=== PATIENT | female | born 1970 | race Caucasian/White ===

== ENCOUNTER 2017-01-01 21:54 | Inpatient (IN) ==
[2017-01-01] MEDS ORDERED: *HR* HYDROcodone/Acet 5/325 mg TABLET PO ONE (22:12)
[2017-01-01] MEDS ORDERED: *HR* FentaNYL (PF) 100 MCG/2 ML VIAL IVP ONE ×2 (22:18→23:24)
[2017-01-01] MEDS ORDERED: 0.9 % Sodium Chloride 1,000 ML IVC ONE (22:18)
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
[2017-01-02] MEDS ORDERED: *HR* OxyCODONE/APAP 5/325 TABLET PO ONE (00:12)
[2017-01-02] MEDS ORDERED: hydrOXYzine pamoate 25 MG CAPSULE PO ONE (00:26)
[2017-01-02] MEDS ORDERED: Ondansetron 4 MG/2 ML VIAL IVP PRN ×2 (03:32→15:10)
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
[2017-01-02] MEDS: *HR* Morphine 2 MG/ML SYRINGE IVP PRN ×2 (04:06→09:10)
[2017-01-02] MEDS: *HR* Heparin 5,000 UNIT/ML VIAL SQ SCH ×3 (05:36→23:56)
[2017-01-02] MEDS ORDERED: Famotidine 20 MG TABLET PO SCH (07:30)
[2017-01-02] MEDS ORDERED: *HR* OxyCODONE/APAP 5/325 TABLET PO PRN (09:58)
[2017-01-02] MEDS ORDERED: 0.9 % Sodium Chloride 1,000 ML IVC SCH (10:00)
[2017-01-02] MEDS ORDERED: *HR* LORazepam 2 MG/ML VIAL IVP PRN ×2 (10:00→15:10)
[2017-01-02] MEDS ORDERED: *HR* Morphine 2 MG/ML SYRINGE IVP PRN (10:01)
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
[2017-01-02 10:12] LABS: Basophils % 0.3 %; Eosinophils # 0.1 K/mcL (0.0-0.6); Eosinophils % 1.2 %; Hematocrit 36.8 % (35.3-44.9); Immature Granulocytes % 0.4 % (0-4); Lymphocytes # 1.7 K/mcL (0.6-4.6); Lymphocytes % 22.3 %; Mean Corpuscular HGB Conc 33.2 g/dL (31.6-35.5); Mean Corpuscular Hemoglobin 31.7 pg (28.0-33.3); Mean Corpuscular Volume 95.6 fL (83.0-100.0); Monocytes # 0.8 K/mcL (0.0-1.3); Monocytes % 10.4 %; Neutrophils # 4.8 K/mcL (1.6-8.9); Platelet Count 191 K/mcL (140-400); Red Blood Count 3.85 M/mcL (3.82-4.97); Segmented Neutrophils % 65.4 %
[2017-01-02 10:18] LABS: Hemoglobin 12.2 g/dL (11.5-15.4)
[2017-01-02 10:21] LABS: Prothrombin Time 10.3 Seconds (9.4-12.1)
[2017-01-02 10:24] LABS: Activated Partial Thrombo Time 28.2 Seconds (26.0-36.0)
[2017-01-02 10:28] LABS: Alanine Aminotransferase 25 Units/L (0-55); Albumin 3.7 g/dL (3.5-5.0); Albumin/Globulin Ratio 1.1 (1.1-2.2); Alkaline Phosphatase 92 Units/L (38-126); Aspartate Amino Transferase 32 Units/L (5-34); BUN/Creatinine Ratio 8 (6-26); Bilirubin,Total 0.6 mg/dL (0.2-1.2); Blood Urea Nitrogen 6 mg/dL (7-20); Calcium 9.2 mg/dL (8.6-10.8); Carbon Dioxide 21 mEq/L (19-29); Chloride 105 mEq/L (98-109); Globulin 3.3 g/dL (2.4-3.5); Glucose 74 mg/dL (70-99); Osmolality,Calculated 282 (280-300); Potassium 3.9 mEq/L (3.5-4.5); Sodium 138 mEq/L (136-145); eGFR For African Americans > 60 (> 60); eGFR For Non-African Americans > 60 (> 60)
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
--- NOTE | 2017-01-02 12:46 | Anesthesia Evaluation PreOp ---
Date of Encounter: 01/02/17 Time of Encounter: 12:44 - Past History Planned Operation: ORIF left humerus fracture Cardiac History: Denies any Significant Hx Pulmonary History: Denies Any Significant HX SOLVENT MIXER History: Denies Any Significant HX Other Medical History: GERD Anesthesia History: No Prior Anesthetic Complications, Past Anesthesia (C/S, den, wrist surgery) : No Test: Negative Alcohol Use: occasionally Drug use: none Medications and Allergies No Known Home Drugs 01/02/17 [History] 3 Allergy/AdvReac Type Severity Reaction Status Date / Time No Known Allergies Allergy Verified 03/12/16 11:52 - Meds/Allergy Pre-op Review Medications Reviewed: Yes Allergies Reviewed: Yes Beta Blockers on Current Med List: No Anesthesia Results - Labs 01/02/17 10:03 01/02/17 10:03 Anesthesia Exam Selected Entries 01/02/17 07:54 Temperature 99 F Pulse Rate 72 Respiratory Rate 16 Blood Pressure 109/70 O2 Sat by Pulse Oximetry 99 Weight: 68kg NPO (# of Hours): >8 - HEENT Mallampati: II Teeth: Normal Oral Opening: Greater than 3 - SOLVENT MIXER LOC: Oriented SOLVENT MIXER Motor: Normal RUE, Normal LUE, Normal RLE, Normal LLE, Normal Face SOLVENT MIXER Sensory: Normal: RUE, LUE, RLE, LLE, Face - Cardiac Rhythm: Regular Murmur: None - Pulmonary Breath Sounds: bilateral Clear Respiratory Effort: Symmetrical Anesthesia Assess/Plan ASA Score: 2 Modified [place] Scale for Level of Consciousness: Cooperative, oriented, and tranquil Anesthetic Plan: General Monitoring Plan: Standard Monitors Recovery Plan: PACU (Discusssed risks of GA, questions answered and agrees to proceed. Also wants interscalene block)
[2017-01-02] MEDS ORDERED: ROPIVACAINE HCL/PF 0.5% 30 ML VIAL ONE (12:55)
[2017-01-02] MEDS ORDERED: Bupivacaine/EPI 1:200k 0.25%PF 10 ML VIAL INFILT ONE (12:56)
[2017-01-02] MEDS ORDERED: Lidocaine -MPF 2% 5 ML VIAL ONE (12:56)
[2017-01-02] MEDS ORDERED: *HR* Propofol 200 MG/20 ML VIAL IVP ONE (13:16)
[2017-01-02] MEDS ORDERED: *HR* FentaNYL (PF) 100 MCG/2 ML VIAL ONE (13:16)
[2017-01-02] MEDS ORDERED: *HR* Midazolam HCl 2 MG/2 ML VIAL ONE (13:16)
[2017-01-02] MEDS ORDERED: *HR* Promethazine 25 MG/ML VIAL IVP PRN (13:34)
[2017-01-02] MEDS ORDERED: *HR* HYDROmorphone (PF) 1 MG/ML SYRINGE IVP PRN (13:34)
--- NOTE | 2017-01-02 13:40 | Anesthesia Procedures ---
Date of Encounter: 01/02/17 Time of Encounter: 13:04 Procedures: Anesthesia - Nerve Block Procedure Date: 01/02/17 Time: 13:04 Allergies/Adv Reactions: nkda Surgical Procedure: left ORIF humerus Checklist: Correct Patient Identifier, Correct procedure, History checked Correct side: Left Blood Thinner: No Monitor Applied: BP, Pulse Oximetry Supplemental Oxygen via Nasal Cannula (L/min): 2 Sedation: Versed (mg): 2 Sedation: Fentanyl (mcg): 100 Indication: Post Op Analgesia Pre-op Neuro Deficits: No Block Type: Interscalene (15 ml of 0.5% rop), Supraclavicular (15ml 0.5% rop ), Other (scp 4ml, and T2 4ml. mixture of 0.25% bup with 1:200k epi and 2%lido plain, ) Catheter placed: No Sterile Technique: Yes Ultrasound used: Yes Anatomy identified: Yes Visual spread of Local: Yes Neuro Stimulation: No Blood on Needle Aspiration: No Smooth Injection of Local: Yes Pain with Injection of Local: No Prep: Chlorhexadine Needle: 22 x 50 mm Stimuplex Local: Ropivacaine, Other (see above) Volume (cc): 38 Number of Attempts: 1 Complications: None/effective block Vitals: vss though out, block per request of surgeon.
[2017-01-02] MEDS ORDERED: Dexamethasone 4 MG/ML VIAL ONE (13:52)
[2017-01-02] MEDS ORDERED: Ondansetron 4 MG/2 ML VIAL ONE (13:52)
[2017-01-02] MEDS ORDERED: EPHEDrine 50 MG/ML VIAL ONE (13:52)
--- NOTE | 2017-01-02 14:08 | Orthopedic Operative Note ---
Date of procedure: 01/02/17 Pre-op diagnosis: Displaced left proximal humerus fracture Post-op diagnosis: same Procedure: Procedure: Left open reduction internal fixation Humerus proximal humerus Estimated blood loss: 100 cc Hardware: 3 hole Synthes proximal humeral locking plate, 1 3.5 cortical screws , 5 3.5 Locking screws Operative procedure: The patient was brought to the operating room and placed on the operating room table. After general anesthesia was administered the operative arm was prepped and draped in the sterile surgical fashion The patient received IV antibiotics prior to skin incision. A standard extended deltopectoral approach was made to the humerus, the incision is made to the skin and subcutaneous tissue. Hemostasis was obtained with Bovie cautery. Using careful blunt dissection the deltopectoral interval was developed, exposing the fracture site. Using fluoroscopic assistance a Synthes proximal humeral locking plate was approximated to the anterior lateral surface was fixed distally in compression with one 3.5 cortical screw. It was fixed proximally with 3 3.5 locking screws. Fixation was completed with distal fixation with2 3.5 locking screws. Position of the hardware as well as fracture reduction found to be acceptable on fluoroscopic exam evaluation. The wound was irrigated the deltopectoral closed with a running #1 PDS suture case tissues irrigated and closed deep with 0 PDS suture superficially with 0 PDS suture was closed with Dermabond patient was sterile dressing and brace. The patient was extubated, and then transferred to the recovery room in stable condition. Anesthesia: GETA Surgeon: Omar Baez Condition: stable Disposition: PACU
--- NOTE | 2017-01-02 14:48 | Anesthesia Evaluation Post Op ---
Date of Encounter: 01/02/17 Time of Encounter: 14:48 - Vital Signs Vital Signs: Vital Signs/O2 Sat, Most Current Temp Pulse Resp BP Pulse Ox 97.6 F 84 16 96/72 98 01/02/17 14:43 01/02/17 14:43 01/02/17 14:43 01/02/17 14:43 01/02/17 14:43 - Lungs Lungs: Clear Ascult./Percussion - Airway Airway: Non-obstructed - Cardiovascular Regular Rate - Mental Status Mental Status: Alert & Oriented, Answers Appropriately - Pain Pain Scale: 0 Pain Scale used: Numeric (1 - 10) - Nausea Vomiting Nausea Vomiting: Not Present - Hydration Hydration: Ice chips, Has not voided - Discharge PostOp Status: Transfer Patient to floor
[2017-01-02] MEDS ORDERED: Temazepam 15 MG CAPSULE PO PRN (15:10)
[2017-01-02] MEDS ORDERED: Naloxone 0.4 MG/ML INJ IVP PRN (15:10)
[2017-01-02] MEDS ORDERED: MOM Conc 10 ML UD.LIQ PO PRN (15:10)
[2017-01-02] MEDS ORDERED: Sennosides 8.6 MG TABLET PO PRN (15:10)
[2017-01-02] MEDS: 0.9 % Sodium Chloride 1,000 ML IVC SCH ×2 (15:18→23:58)
[2017-01-02] MEDS: Famotidine 20 MG TABLET PO SCH (16:05)
[2017-01-02] MEDS: *HR* OxyCODONE/APAP 5/325 TABLET PO PRN (23:55)
[2017-01-02] MEDS: ceFAZolin 2,000 MG in D5% in Water 100 ML IVPB SCH (23:56)
[2017-01-03] MEDS: *HR* Morphine 2 MG/ML SYRINGE IVP PRN ×2 (01:53→07:58)
[2017-01-03 04:45] LABS: Hematocrit 32.6 % (35.3-44.9); Hemoglobin 10.7 g/dL (11.5-15.4)
[2017-01-03] MEDS: *HR* Heparin 5,000 UNIT/ML VIAL SQ SCH ×3 (06:40→19:25)
[2017-01-03] MEDS: ceFAZolin 2,000 MG in D5% in Water 100 ML IVPB SCH (06:40)
[2017-01-03] MEDS: Famotidine 20 MG TABLET PO SCH ×2 (06:42→16:29)
--- NOTE | 2017-01-03 07:33 | Orthopedics Progress Note ---
Date of Encounter: 01/03/17 Time of Encounter: 07:33 Subjective Interval history: Patient was seen this morning doing well without complaints. Afebrile vital signs stable. Operative extremity: Neurovascularly intact Dressing clean dry and intact Calves nontender Assessment and plan: Continue with postoperative care Hematocrit 32 Objective Vital signs: Vital Signs Temp Pulse Resp BP Pulse Ox 01/03/17 06:48 98.5 F 96 18 123/76 98 01/03/17 04:15 98.7 F 91 16 119/75 97 01/02/17 23:23 98.7 F 71 16 103/68 98 01/02/17 20:15 98.1 F 68 18 106/71 97 01/02/17 17:00 82 18 116/80 97 01/02/17 16:08 98.2 F 72 18 116/80 96 01/02/17 16:00 74 18 121/81 98 01/02/17 15:13 72 18 117/80 94 01/02/17 14:43 97.6 F 84 16 96/72 98 01/02/17 14:35 88 10 98/64 93 01/02/17 14:26 89 12 104/65 96 01/02/17 14:15 99.2 F 99 12 110/64 98 01/02/17 13:58 75 111/77 98 01/02/17 13:00 71 97 Intake and Output 01/02/17 01/02/17 01/03/17 15:59 23:59 07:59 Intake Total 1120 / 1120 100 / 100 Output Total 100 / 100 0 / 0 Balance -100 / -100 1120 / 1120 100 / 100 Intake: IV Fluids 1000 / 1000 100 / 100 0.9 % Sodium Chloride 1, 1000 / 1000 000 ML @ 125 mls/hr IVC . Q8H [place] Rx#:[id number] Ancef 2,000 MG In 100 / 100 Dextrose 5% 100 ML @ 200 mls/hr IVPB Q8H [place] Rx#: [id number] Oral 120 / 120 Output: Urine 0 / 0 0 / 0 Estimated Blood Loss 100 / 100 Other: Percent of Meal Consumed 75% - Labs CBC & BMP: 01/03/17 03:57 01/02/17 10:03 Labs: Abnormal lab results Hgb 10.7 g/dL (11.5-15.4) L D 01/03/17 03:57 Hct 32.6 % (35.3-44.9) L 01/03/17 03:57 BUN 6 mg/dL (7-20) L 01/02/17 10:03 - VTE Documentation of Mechanical Device: Intermittent pneumatic compression device Consult Discharge Plan - Plan Referrals: NONE,PCP [Primary Care Provider] -
[2017-01-03] MEDS: *HR* OxyCODONE/APAP 5/325 TABLET PO PRN (09:13)
[2017-01-03] MEDS ORDERED: *HR* LORazepam 1 MG TABLET PO PRN (09:13)
--- NOTE | 2017-01-03 09:17 | Internal Med Progress Note ---
Date of Encounter: 01/03/17 Time of Encounter: 09:15 - Assessment and plan (1) Proximal humeral fracture Current Visit: Yes Status: Acute Assessment and plan: s/p Left shoulder ORIF POD #1 d/c IVF Reviewed labs -- normal and stable electrolytes Hb dropped down to 10.7..no need of transfusions Changed pain meds to Dilaudid for severe pain and inc Percocet to 7.5mg for moderate pain Qualifiers: Encounter type: initial encounter Fracture type: closed Fracture morphology: unspecified fracture morphology Laterality: left Qualified Code( s): S42.202A - Unspecified fracture of upper end of left humerus, initial encounter for closed fracture (2) Left shoulder pain Current Visit: Yes Status: Acute Assessment and plan: cont PO and IV analgesics Qualifiers: Chronicity: acute Qualified Code(s): M25.512 - Pain in left shoulder (3) Alcohol dependence Current Visit: Yes Status: Acute Assessment and plan: Cousneled to quit drinking Pt is willing to quit she did mention her last alcohol was 5 days cont monitoring So far no signs of withdrawal Cont ativan 1mg PO Q6hr PRN Qualifiers: Substance use status: uncomplicated Qualified Code(s): F10.20 - Alcohol dependence, uncomplicated (4) DVT prophylaxis Current Visit: Yes Status: Acute Assessment and plan: on SQ heparin - Subjective Interval history: Ms. Hopson is a 46 year old female presents to the emergency room today after a fall. Patient mentioned she fell from her 4-[place] on her left side. She has severe pain in the left shoulder region. Pt had further work up done in the ER, her Left shoulder X ray showed comminuted, impacted cervical neck proximal humerus fx. Pt was admitted here for intractable Left shoulder pain with humerus fx. had Surgery on 01/02/17. She still c/o of lot of pain in Left shoulder. Current pain medication is not helping her pain. Denied any CP / SOB. She did mention drinking alcohol 6 packs beer every day..But have not had alcohol since Thursday. - Constitutional Vitals: Temp Pulse Resp BP Pulse Ox 98.5 F 96 18 123/76 98 01/03/17 06:48 01/03/17 06:48 01/03/17 06:48 01/03/17 06:48 01/03/17 08:06 General appearance: Present: mild distress (due to pain), A&O X 3, answers questions appropriately - Head Head exam: Present: atraumatic, normal inspection - Respiratory Respiratory exam: Present: CTAB. Absent: accessory muscle use, rales, rhonchi, wheezes - Cardiovascular Cardiovascular exam: Present: RRR, +S1, +S2. Absent: diastolic murmur, gallop, rubs, systolic murmur - GI/Abdominal GI/Abdominal exam: Present: normal bowel sounds, soft, no peritoneal signs. Absent: distended, tenderness - Extremities Exam Extremities exam: Present: tenderness (Left shoulder). Absent: calf tenderness , pedal edema Additional comments: Clean incision .. Moderate swelling tenderness over Left shoulder noticed - Neurological Exam Neurological exam: Present: alert, oriented X3 - Psychiatric Psychiatric exam: Present: normal affect, normal mood Internal Medicine: Result - Labs CBC & Chem 7: 01/03/17 03:57 01/02/17 10:03 Labs: Short CBC 01/03/17 Range/Units 03:57 Hgb 10.7 L D (11.5-15.4) g/dL Hct 32.6 L (35.3-44.9) % - ABG Interpretation ABG results: PT/INR, D-dimer PT 10.3 Seconds (9.4-12.1) 01/02/17 10:03 - VTE Documentation of Mechanical Device: Venous foot pump, device Consult Discharge Plan - Plan Referrals: NONE,PCP [Primary Care Provider] - Prescriptions: OxyCODONE Immed Rel [Roxicodone 5 MG] 5 mg PO Q4HR PRN #24 tablet PRN Reason: Pain
[2017-01-03] MEDS: *HR* HYDROmorphone (PF) 1 MG/ML SYRINGE IVP PRN ×2 (13:42→19:24)
[2017-01-03] MEDS: *HR* OxyCODONE/APAP 7.5/325 TABLET PO PRN ×2 (16:29→21:24)
[2017-01-04 01:46] LABS: Hematocrit 32.9 % (35.3-44.9); Hemoglobin 10.6 g/dL (11.5-15.4)
[2017-01-04] MEDS: *HR* HYDROmorphone (PF) 1 MG/ML SYRINGE IVP PRN ×2 (04:19→08:33)
[2017-01-04] MEDS: *HR* OxyCODONE/APAP 7.5/325 TABLET PO PRN (06:02)
[2017-01-04] MEDS: *HR* Heparin 5,000 UNIT/ML VIAL SQ SCH (06:03)
[2017-01-04 07:15] VITALS: BP 137/86
--- NOTE | 2017-01-04 07:36 | Orthopedics Progress Note ---
Date of Encounter: 01/04/17 Time of Encounter: 07:35 Subjective Interval history: Patient was seen this morning doing well without complaints. Afebrile vital signs stable. Operative extremity: Neurovascularly intact Dressing clean dry and intact Calves nontender Assessment and plan: Continue with postoperative care Stable for discharge Objective Vital signs: Vital Signs Temp Pulse Resp BP Pulse Ox 01/04/17 06:43 98.8 F 97 16 137/86 99 01/03/17 23:52 99.0 F 95 17 133/85 99 01/03/17 19:57 99.2 F 98 17 135/84 99 01/03/17 14:58 98.5 F 87 18 134/86 99 01/03/17 08:06 98 Intake and Output 01/03/17 01/03/17 01/04/17 15:59 23:59 07:59 Intake Total 890 / 890 950 / 950 200 / 200 Output Total 750 / 750 Balance 140 / 140 950 / 950 200 / 200 Intake: Oral 890 / 890 950 / 950 200 / 200 Output: Urine 750 / 750 Other: Meal Lunch Percent of Meal Consumed 75% # Voids 1 1 Weight 68.6 kg Patient Weight 01/04/17 23:59 Weight 68.6 kg - Labs CBC & BMP: 01/04/17 01:12 01/02/17 10:03 Labs: Abnormal lab results Hgb 10.6 g/dL (11.5-15.4) L 01/04/17 01:12 Hct 32.9 % (35.3-44.9) L 01/04/17 01:12 BUN 6 mg/dL (7-20) L 01/02/17 10:03 - VTE Documentation of Mechanical Device: Venous foot pump, device Consult Discharge Plan - Plan Referrals: NONE,PCP [Primary Care Provider] - Prescriptions: OxyCODONE Immed Rel [Roxicodone 5 MG] 5 mg PO Q4HR PRN #24 tablet PRN Reason: Pain
[2017-01-04] MEDS: Famotidine 20 MG TABLET PO SCH (07:40)
--- NOTE | 2017-01-04 08:40 | Discharge Summary ---
Date of Encounter: 01/04/17 Time of Encounter: 08:34 - Discharge Diagnosis (1) Proximal humeral fracture Priority: Primary Status: Acute Qualifiers: Encounter type: initial encounter Fracture type: closed Fracture morphology: unspecified fracture morphology Laterality: left Qualified Code( s): S42.202A - Unspecified fracture of upper end of left humerus, initial encounter for closed fracture (2) Left shoulder pain Priority: Primary Status: Acute Qualifiers: Chronicity: acute Qualified Code(s): M25.512 - Pain in left shoulder (3) Alcohol dependence Priority: Secondary Status: Acute Qualifiers: Substance use status: uncomplicated Qualified Code(s): F10.20 - Alcohol dependence, uncomplicated - Discharge Medications Prescriptions: OxyCODONE/APAP 7.5/325 [Percocet 7.5/325 MG] 1 each PO Q6HR PRN #20 tab PRN Reason: Moderate Pain Docusate [Colace] 100 mg PO BID PRN #30 PRN Reason: Constipation Home Medications: Docusate [Colace] 100 mg PO BID PRN #30 01/04/17 [Rx] OxyCODONE/APAP 7.5/325 [Percocet 7.5/325 MG] 1 each PO Q6HR PRN #20 tab [Rx] Allergies/Adverse Reactions: 3 Allergy/AdvReac Type Severity Reaction Status Date / Time No Known Allergies Allergy Verified 03/12/16 11:52 Date of admission: 01/02/17 11:23 Primary care physician: PCP NONE Consults: 01/02/17 15:10 Consult to Occupational Therapy [CONS] Routine Comment: post shoulder surgery Reason for Consult: post shoulder surgery Consult to Physical Therapy [CONS] Routine Comment: post shoulder surgery Reason for Consult: post shoulder surgery RT Post Op Consult [CONS] Routine - Patient Status Disposition: Home, Self-Care Condition: Good Overall status at discharge: patient is back to baseline - Discharge Instructions Follow Up With: NONE,PCP [Primary Care Provider] - Omar Baez MD [Partnered Physician] - Additional Instructions: Need to f/u with PCP in one week Need to f/u with Ortho Dr. Baez in 5-7 days - Diet and Activity Activity: as per physical therapy, increase activity as tolerated Diet: advance to your usual diet Hospital course: Ms. Hopson is a 46 year old female presents to the emergency room after a fall. Patient mentioned she fell from her 4-[place] on her left side. She has severe pain in the left shoulder region. Pt had further work up done in the ER, her Left shoulder X ray showed comminuted, impacted cervical neck proximal humerus fx. Pt was admitted here for intractable Left shoulder pain with humerus fx. She was started on symptomatic and supportive care. She did go for Left Shoulder ORIF on 01/02/17. Postoperatively pt has been doing well. She did required high dose pain medication. Her pain is well controlled with Percocet 7.5mg. So will send her home on Percocet 7.5mg. Pt was seen by PT / OT who recommend out pt PT / OT. So will provide her rx for out pt PT / OT. She did mention drinking alcohol 6 packs beer every day..But have not had alcohol since 5 days prior to this hospitalization. She was monitored closely here , never went into any alcohol withdrawal symptoms. - Time Spent with Patient Total time spent providing and/or coordinating discharge services: - Constitutional Vitals: Temp Pulse Resp BP Pulse Ox 98.8 F 97 16 137/86 99 01/04/17 06:43 01/04/17 06:43 01/04/17 06:43 01/04/17 06:43 01/04/17 06:43 General appearance: Present: A&O X 3, answers questions appropriately - Head Head exam: Present: atraumatic, normal inspection - Respiratory Respiratory exam: Present: decreased breath sounds. Absent: rales, respiratory distress, rhonchi, wheezes - Cardiovascular Cardiovascular exam: Present: RRR, +S1, +S2. Absent: systolic murmur - Extremities Exam Extremities exam: Present: tenderness (mild tenderness ar Left shoulder). Absent: calf tenderness, pedal edema Additional comments: Sling placed on left elbow. Clean incision with no discharge - Neurological Exam Neurological exam: Present: alert, oriented X3 - Psychiatric Psychiatric exam: Present: normal affect, normal mood - VTE Documentation of Mechanical Device: Venous foot pump, device
--- NOTE | 2017-01-05 10:20 | Electrocardiograph Report ---
[place] [address] Test Date: 2017-01-02 Pat Name: Divya Hopson Department: 114 Room: [facility] Gender: F Erp Project Manager: : 1970 Requested By: Robin Burt Order Number: [id number] Reading MD: Timi Palacios MD Measurements Intervals [place] Rate: 69 P: 69 ND: 131 QRS: 54 QRSD: 89 T: 50 QT: 386 QTc: 404 Interpretive Statements SINUS RHYTHM BASELINE ARTIFACT Electronically Signed On 01-05-2017 10:18:39 EDT by Timi Palacios MD
== END 2017-01-04 10:49 | disposition home or self-care (01) | DRG 494 ==
LOC: 3NENU 21:54 → EMEROO 21:54 → 3NENU 01-02 01:49
PROVIDERS: ADMIT Family Medicine; ATTEND Family Medicine